=== PATIENT | female | born 1975 | race Caucasian/White ===

== ENCOUNTER 2016-10-29 16:49 | Emergency (ER) | payer MEDICAID ==
[~2016-10-29] VITALS: Ht 157.5 cm; Wt 84.1 kg
[~2016-10-29 16:49] MED LIST: AMOXICILLIN 50500 MG PO; FLAGYL500 MG PO; NORCO 325 MG-51 TAB PO; PEN-VEE K500 MG PO; ZOFRAN ODT4 MG PO
[2016-10-29 16:51] VITALS: TEMP 98
[2016-10-29 17:33] LABS: BASO % 0.4 % (0.0-2.0); EOS # 0.2 (0.0-0.7); EOS % 2.9 % (0-4.0); GRAN # 5.4 (1.4-6.5); GRAN % 66.5 % (42.2-75.2); HEMATOCRIT 45.7 % (37.0-47.0); HEMOGLOBIN 15.4 g/dl (12.5-16.0); LYMPH # 1.9 (1.2-3.4); LYMPH % 22.8 % (20.0-51.0); MEAN CELL VOLUME 91 fl (80.0-100.0); MEAN CORPUSCULAR HEMOGLOBIN 31 pg (27.0-31.0); MEAN CORPUSCULAR HGB CONC 34 g/dl (33.0-37.0); MEAN PLATELET VOLUME 11.2 fl (7.4-10.4); MONO # 0.6 (0.1-0.6); MONO % 7.2 % (1.7-9.3); PLATELET COUNT 99 K/mm3 (130-400); RED BLOOD COUNT 5.05 M/mm3 (4.10-5.30); WHITE BLOOD COUNT 8.2 K/mm3 (4.8-10.8)
[2016-10-29 17:39] LABS: PH 7 (5-8); SQUAMOUS EPITHELIAL 0-2 /hpf; URINE APPEARANCE Cloudy; URINE BACTERIA None Seen /hpf; URINE BILIRUBIN Negative (NEGATIVE); URINE BLOOD Negative (NEGATIVE); URINE COLOR Yellow; URINE GLUCOSE Negative (NEGATIVE); URINE KETONE 1+ (NEGATIVE); URINE RBC 0-2 /hpf; URINE UROBILINOGEN Negative (NEGATIVE); URINE WBC None Seen /hpf
[2016-10-29 17:46] LABS: ADJUSTED CALCIUM 9.7 mg/dL (8.4-10.2); ALBUMIN 3.7 gm/dL (3.5-5.0); BILIRUBIN,TOTAL 0.4 mg/dL (0.0-1.0); CALCIUM 9.5 mg/dL (8.4-10.2); CREATININE, serum 0.84 mg/dL (0.52-1.25); POTASSIUM 4.2 mmol/L (3.4-5.0); TOTAL PROTEIN 6.1 gm/dL (6.4-8.2)
[2016-10-29] MEDS ORDERED: BENTYL 20MG20 MG/TAB PO (18:28)
[2016-10-29] MEDS ORDERED: ZOFRAN ODT4 MG PO (18:28)
[2016-10-29 18:43] VITALS: BP 123/83; PULSE 70
== END 2016-10-29 18:50 | disposition home or self-care (01) ==
LOC: COL.ER 16:49
PROVIDERS: Emergency Medicine
DX: A08.4 Viral intestinal infection, unspecified (principal)
CPT/HCPCS: J2765; J3010; J7030

== ENCOUNTER 2016-12-06 20:36 | Emergency (ER) | payer MEDICAID ==
[~2016-12-06] VITALS: Ht 157.5 cm; Wt 81.8 kg
[~2016-12-06 20:36] MED LIST changes: +BENTYL 20MG20 MG/TAB PO
[2016-12-06 20:42] VITALS: BP 140/99; TEMP 98.7
[2016-12-06] MEDS ORDERED: VOLTAREN 75 DR75 MG PO (21:27)
[2016-12-06] MEDS ORDERED: FLEXERIL 1010 MG/TAB PO (21:27)
[2016-12-06] MEDS ORDERED: TYLENOL W/COD1 UDTAB PO (21:27)
[2016-12-06 22:05] VITALS: PULSE 94
== END 2016-12-06 22:06 | disposition home or self-care (01) ==
LOC: COL.ER 20:36
DX: S39.012A Strain of muscle, fascia and tendon of lower back, initial encounter (principal); X50.0XXA Overexertion from strenuous movement or load, initial encounter; Y93.E6 Activity, residential relocation; Y92.009 Unspecified place in unspecified non-institutional (private) residence as the place of occurrence of the external cause
CPT/HCPCS: J3010; J7512

== ENCOUNTER 2017-01-02 19:06 | Emergency (ER) | payer MEDICAID ==
[~2017-01-02] VITALS: Ht 157.5 cm; Wt 81.8 kg
[~2017-01-02 19:06] MED LIST changes: +FLEXERIL 1010 MG/TAB PO; +TYLENOL W/COD1 UDTAB PO; +VOLTAREN 75 DR75 MG PO
[2017-01-02 19:10] VITALS: BP 133/87; PULSE 102; TEMP 97.5
[2017-01-02] MEDS ORDERED: PERCOCET 325 MG1 TA2 PO (19:30)
[2017-01-02] MEDS ORDERED: AMOXICILLIN 8751 TAB PO (19:37)
== END 2017-01-02 19:40 | disposition home or self-care (01) ==
LOC: COL.ER 19:06
DX: K08.89 Other specified disorders of teeth and supporting structures (principal); K03.81 Cracked tooth

== ENCOUNTER 2017-01-04 14:44 | Emergency (ER) | payer MEDICAID ==
[~2017-01-04] VITALS: Ht 157.5 cm; Wt 81.8 kg
[~2017-01-04 14:44] MED LIST changes: +AMOXICILLIN 8751 TAB PO; +PERCOCET 325 MG1 TA2 PO
[2017-01-04 14:51] VITALS: BP 148/80; PULSE 75; TEMP 98.2
== END 2017-01-04 15:53 | disposition home or self-care (01) ==
LOC: COL.ER 14:44
DX: S80.01XA Contusion of right knee, initial encounter (principal); W01.198A Fall on same level from slipping, tripping and stumbling with subsequent striking against other object, initial encounter; Y92.009 Unspecified place in unspecified non-institutional (private) residence as the place of occurrence of the external cause
CPT/HCPCS: L1830

== ENCOUNTER 2017-03-26 22:46 | Emergency (ER) | payer MEDICAID ==
[~2017-03-26] VITALS: Ht 154.9 cm; Wt 70.9 kg
[2017-03-26 22:48] VITALS: BP 139/83; TEMP 98.9
[2017-03-26] MEDS ORDERED: NORCO 325 MG-51 TAB PO (23:26)
[2017-03-26] MEDS ORDERED: PEN-VEE K500 MG PO (23:26)
[2017-03-26 23:42] VITALS: PULSE 73
== END 2017-03-26 23:42 | disposition home or self-care (01) ==
LOC: COL.ER 22:46
DX: K02.9 Dental caries, unspecified (principal); R68.84 Jaw pain; F41.9 Anxiety disorder, unspecified

== ENCOUNTER 2017-05-13 13:24 | Emergency (ER) | payer MEDICAID ==
[~2017-05-13] VITALS: Ht 157.5 cm; Wt 72.7 kg
[2017-05-13] MEDS ORDERED: NORCO 325 MG-51 TAB PO (15:21)
[2017-05-13] MEDS ORDERED: DOXYCYCLINE 10100 MG PO (15:21)
[2017-05-13 16:17] VITALS: BP 127/79; PULSE 77; TEMP 98.1
== END 2017-05-13 16:23 | disposition home or self-care (01) ==
LOC: COL.ER 13:24
DX: L02.412 Cutaneous abscess of left axilla (principal); F17.210 Nicotine dependence, cigarettes, uncomplicated

== ENCOUNTER 2017-11-21 17:06 | Emergency (ER) | payer MEDICAID ==
[~2017-11-21] VITALS: Ht 157.5 cm; Wt 68.2 kg
[~2017-11-21 17:06] MED LIST changes: +DOXYCYCLINE 10100 MG PO
[2017-11-21 17:07] VITALS: TEMP 97.2
[2017-11-21] MEDS ORDERED: NORCO 325 MG-7.1 TAB PO (19:19)
[2017-11-21 20:00] VITALS: BP 124/73; PULSE 73
== END 2017-11-21 20:10 | disposition home or self-care (01) ==
LOC: COL.ER 17:06
DX: S92.001A Unspecified fracture of right calcaneus, initial encounter for closed fracture (principal); W17.89XA Other fall from one level to another, initial encounter; Y92.008 Other place in unspecified non-institutional (private) residence as the place of occurrence of the external cause
CPT/HCPCS: J1170; J1885; J3010; J7030; Q4045